=== PATIENT | female | born 1975 | race Caucasian/White ===

== ENCOUNTER 2016-06-24 19:58 | Emergency (ER) | payer BC ==
[2016-06-24 22:19] LABS: RED BLOOD COUNT 5.16 M/UL (4.00-5.10); WHITE BLOOD COUNT 11.8 K/UL (4.5-11.0)
[2016-06-24 22:34] LABS: BUN/CREATININE RATIO 16 (0-10)
== END 2016-06-25 02:30 | disposition home or self-care (01) ==
LOC: ER1 19:58
PROVIDERS: Student in an Organized Health Care Education/Training Program
DX: N39.0 Urinary tract infection, site not specified (principal); K80.20 Calculus of gallbladder without cholecystitis without obstruction; R00.0 Tachycardia, unspecified; I25.2 Old myocardial infarction; Z79.82 Long term (current) use of aspirin
CPT/HCPCS: 36415; 80053; 81001; 82150; 83690; 84484; 84703; 85025; 87086; 93005; 96365; 96375; 99284; J0696; J2270; J2405; J7050; Q9962